=== PATIENT | female | born 1940 | race Caucasian/White ===

== ENCOUNTER 2022-10-12 12:03 | Outpatient (CLI) | payer MEDICARE, SELFPAY ==
--- NOTE | ~2022-10-12 | US_ITS ---
EXAMINATION: US soft tissue UE RT DATE: 10/12/2022 12:49 INDICATION: Right axillary nodule TECHNIQUE: Multiple grayscale and Doppler ultrasound images of the region of concern at the right axi lla were obtained. Additional grayscale images of the contralateral left axilla were obtained for com travonon. COMPARISON: None FINDINGS: Normal appearance to the subcutaneous fat and underlying musculature at the right axilla which appear s similar to the contralateral left axilla. No abnormal masses, fluid collections or pathologically e nlarged lymphadenopathy. IMPRESSION: 1. Normal study. No abnormal masses, fluid collections or lymphadenopathy identified at the region of concern at the right axilla. Reviewed, dictated and finalized at location A. IMPRESSION: 1. Normal study. No abnormal masses, fluid collections or lymphadenopathy ident ified at the region of concern at the right axilla.
--- NOTE | ~2022-10-12 | US_ITS ---
US thyroid INDICATION: Thyroid nodule TECHNIQUE: Real-time sonographic images of the thyroid gland were obtained. COMPARISON: No prior studies for comparison. FINDINGS: The right thyroid lobe measures 3.9 x 1.3 x 1.7 cm. The left thyroid lobe measures 3.1 x 1 x 1 cm. There is normal echotexture and echogenicity throughout the thyroid gland. In the right lobe there is an oval solid hypoechoic wider than tall smoothly marginated mass without echogenic foci me asuring 7 mm, TR 4. Normal vascular flow is present. IMPRESSION: 1. Oval 7 mm right thyroid mass, TR 4. Otherwise, unremarkable thyroid ultrasound. Reviewed, dictated and finalized at location [] IMPRESSION: 1. Oval 7 mm right thyroid mass, TR 4. Otherwise, unremarkable thyroid ultraso und.
== END 2022-10-12 12:04 | disposition home or self-care (01) ==
PROVIDERS: PCP Family Medicine; Visit Provider Family Medicine
DX: M79.89 Other specified soft tissue disorders (principal); Z86.39 Personal history of other endocrine, nutritional and metabolic disease; E07.9 Disorder of thyroid, unspecified
CPT/HCPCS: 76536; 76882

== ENCOUNTER 2023-01-13 14:34 | Outpatient (CLI) | payer MEDICARE, SELFPAY ==
[2023-01-13 14:56] LABS: Basophils Absolute Auto 0.1 K/mm3 (0.0-0.1); Basophils Percent Auto 0.4 % (0.2-1.2); Eosinophils Absolute Auto 0.4 K/mm3 (0-0.3); Eosinophils Percent Auto 2.1 % (0-4.4); Hematocrit 43.7 % (37.0-47.0); Hemoglobin 14.1 g/dL (12.0-15.0); Immature Granulocyte Absolute 0.06 K/mm3 (0.00-0.031); Immature Granulocyte Percent A 0.3 % (0-0.5); Lymphocytes Absolute Auto 8.66 K/mm3 (0.9-3.2); Lymphocytes Percent Auto 48.5 % (18.3-44.2); Mean Corpuscular HGB Conc 32.3 g/dl (32-36); Mean Corpuscular Hemoglobin 31.2 pg (26-34); Mean Corpuscular Volume 96.7 fl (80-100); Mean Platelet Volume 10.2 fl (7.4-10.4); Monocytes Absolute Auto 1.3 K/mm3 (0.1-0.6); Monocytes Percent Auto 7.4 % (2.6-8.5); Neutrophils Absolute Auto 7.4 K/mm3 (1.3-6.7); Neutrophils Percent Auto 41.3 % (45.5-73.1); Platelet Count Result 452 k/mm3 (150-375); Red Blood Count 4.52 M/mm3 (4.2-5.4); Red Cell Distribution Width 14.8 % (11.5-14.5); White Blood Count 17.8 K/mm3 (4.5-10.0)
[2023-01-13 15:06] LABS: Atypical Lymphocytes Present; Platelet Estimate Increased (Adequate); Schistocytes None Seen (NORMAL)
[2023-01-13 16:34] LABS: Alanine Aminotransferase 28 U/L (6-35); Albumin Level 4.1 g/dL (3.5-5.1); Alkaline Phosphatase 71 U/L (38-126); Anion Gap 2 mmol/L (8-16); Aspartate Amino Transferase 69 U/L (14-36); Bilirubin,Total 0.5 mg/dL (0.2-1.3); Blood Urea Nitrogen 22 mg/dL (7-17); CRP < 0.5 mg/dL (<1.0); Calcium 9.6 mg/dL (8.4-10.2); Carbon Dioxide 33 mmol/L (22-30); Chloride 102 mmol/L (98-107); Estimated Glomerular Filt Rate > 60; Glucose 93 mg/dL (65-110); Potassium 4.6 mmol/L (3.4-5.0); Sodium 137 mmol/L (137-145)
[2023-01-13 16:53] LABS: Erythrocyte Sedimentation Rate 9 mm/hr (0-20)
[2023-01-19 17:30] LABS: BCR/abl Prior Result Not Given
[2023-01-19 18:16] LABS: BCR/abl P190 Not Detected; BCR/abl P210 Not Detected
[2023-01-19 18:17] LABS: BCR/abl P190 Chg YES; BCR/abl P210 Chg YES
== END 2023-01-13 14:35 | disposition home or self-care (01) ==
LOC: ANHLAB 14:36
PROVIDERS: PCP Family Medicine; Visit Provider Internal Medicine Hematology & Oncology
DX: D47.1 Chronic myeloproliferative disease (principal); D72.829 Elevated white blood cell count, unspecified
CPT/HCPCS: 36415; 80053; 81206; 81207; 85025; 85652; 86140

== ENCOUNTER 2023-01-14 14:18 | Outpatient (CLI) | payer MEDICARE, SELFPAY ==
[2023-01-25 12:53] LABS: Block/Specimen ID Not Given; Exon 14; Gene JAK2; JAK2 V617F Mutation Detected (Not Detected); Mutation Frequency 13.8; Mutation Type missense; Specimen Source Blood
== END 2023-01-14 14:19 | disposition home or self-care (01) ==
PROVIDERS: PCP Family Medicine; Visit Provider Internal Medicine Hematology & Oncology
DX: D47.1 Chronic myeloproliferative disease (principal)
CPT/HCPCS: 36415; 81270; 88184